=== PATIENT | female | born 1970 | race Caucasian/White ===

== ENCOUNTER → 2019-04-05 | Outpatient (CLI) | payer BC | LOC: RAD 09:39 | PROVIDERS: ATTEND Family Medicine | DX: R60.0 Localized edema (principal) | CPT/HCPCS: 93971 ==

== ENCOUNTER 2021-09-09 13:34 | Inpatient (IN) | payer BC ==
[~2021-09-09] VITALS: Ht 165.1 cm; Wt 117.5 kg
[2021-09-09] MEDS ORDERED: ONDANSETRON HCL INJ 2MG/ML 2ML 2 MG/ML VIAL IV STA (13:46)
[2021-09-09] MEDS ORDERED: KETOROLAC TROMETHAMINE 30 MG/ML VIAL IV STA (13:46)
[2021-09-09] MEDS ORDERED: SODIUM CHLORIDE 0.9% 1000ML 1,000 ML IV STA (13:46)
[2021-09-09 14:43] LABS: BASOPHILS % 0.3 % (0.0-1.0); EOSINOPHILS % 0.2 % (0.0-6.0); HEMATOCRIT 41.5 % (34.2-44.1); LYMPHOCYTES # (AUTO) 1.3 (1.0-3.2); LYMPHOCYTES % 9.7 % (18.0-39.1); MEAN CORPUSCULAR HEMOGLOBIN 27.9 pg (28-32); MEAN CORPUSCULAR HGB CONC 31.3 g/dL (31-35); MEAN CORPUSCULAR VOLUME 89.1 fL (81-99); MONOCYTES # (AUTO) 1.1 (0.2-0.8); MONOCYTES % 8.1 % (4.4-11.3); NEUTROPHILS # (AUTO) 10.6 (2.1-6.9); NEUTROPHILS % 81.2 % (38.7-80.0); PLATELET COUNT 412 x10e3/uL (140-360); RED BLOOD COUNT 4.66 x10e6/uL (3.6-5.1); RED CELL DISTRIBUTION WIDTH 14.6 % (11.7-14.4)
[2021-09-09 14:52] LABS: COLOR,URINE YELLOW (YELLOW)
[2021-09-09 14:53] LABS: CLARITY,URINE SL CLOUDY (CLEAR); KETONES,URINE NEGATIVE (NEGATIVE); LEUKOCYTE ESTERASE ,URINE TRACE (NEGATIVE); NITRITE,URINE NEGATIVE (NEGATIVE); PROTEIN,URINE DIPSTICK 1+ (NEGATIVE)
[2021-09-09 14:54] LABS: URINE UROBILINOGEN 0.2 mg/dL (0.2 - 1)
[2021-09-09 15:04] LABS: ALBUMIN 3.9 g/dL (3.5-5.0); ANION GAP 14.1 mmol/L (8-16); CALCIUM 10.2 mg/dL (8.4-10.2); CREATININE, SERUM 0.97 mg/dL (0.57-1.11); POTASSIUM 4.1 mmol/L (3.5-5.1)
[2021-09-09 15:07] LABS: BACTERIA,URINE RARE /HPF; EPITHELIAL CELLS,URINE FEW /LPF; RBC,URINE >50 /HPF (0-5); WBC,URINE (MAN) 0-5 /HPF (0-5)
[2021-09-09] MEDS ORDERED: ONDANSETRON HCL INJ 2MG/ML 2ML 2 MG/ML VIAL IV PRN (16:15)
[2021-09-09] MEDS: SODIUM CHLORIDE 0.9% 1000ML 1,000 ML IV SCH (17:29)
[2021-09-09 21:00] VITALS: BP 162/95
[2021-09-09] MEDS: Morphine 4mg INJECTION 4 MG/ML INJ IV PRN (21:49)
[2021-09-09] MEDS ORDERED: TRELEGY ELLIPT1 EACH INH (22:08)
[2021-09-09] MEDS ORDERED: ARMOUR THYROID60 MG PO (22:08)
[2021-09-09] MEDS ORDERED: PROAIR HFA INH8.5 GM INH (22:08)
[2021-09-09] MEDS ORDERED: LOSARTAN-HCTZ1 EACH PO (22:08)
[2021-09-10] VITALS (8 sets, daily range): BP systolic 111–167; BP diastolic 70–105
[2021-09-10] MEDS: SODIUM CHLORIDE 0.9% 1000ML 1,000 ML IV SCH ×4 (02:26→23:14)
[2021-09-10 05:41] LABS: BASOPHILS # (AUTO) 0.1 (0.0-0.1); BASOPHILS % 0.8 % (0.0-1.0); EOSINOPHILS # (AUTO) 0.4 (0.0-0.4); EOSINOPHILS % 3.2 % (0.0-6.0); HEMATOCRIT 38.7 % (34.2-44.1); HEMOGLOBIN 11.8 g/dL (12.0-16.0); LYMPHOCYTES # (AUTO) 2.6 (1.0-3.2); LYMPHOCYTES % 24.2 % (18.0-39.1); MEAN CORPUSCULAR HEMOGLOBIN 28.1 pg (28-32); MEAN CORPUSCULAR HGB CONC 30.5 g/dL (31-35); MEAN CORPUSCULAR VOLUME 92.1 fL (81-99); MONOCYTES # (AUTO) 1.1 (0.2-0.8); MONOCYTES % 9.8 % (4.4-11.3); NEUTROPHILS # (AUTO) 6.7 (2.1-6.9); NEUTROPHILS % 61.5 % (38.7-80.0); PLATELET COUNT 349 x10e3/uL (140-360)
[2021-09-10 06:19] LABS: ALBUMIN 3.2 g/dL (3.5-5.0); ALBUMIN/GLOBULIN RATIO 0.9 (0.8-2.0); CALCIUM 8.9 mg/dL (8.4-10.2); CREATININE, SERUM 0.94 mg/dL (0.57-1.11)
[2021-09-10] MEDS: KETOROLAC TROMETHAMINE 30 MG/ML VIAL IV PRN ×2 (09:04→23:14)
[2021-09-10] MEDS ORDERED: LACTULOSE SYRUP 20 GM/30 ML UDC PO PRN (18:45)
[2021-09-10] MEDS: Morphine 4mg INJECTION 4 MG/ML INJ IV PRN (19:48)
[2021-09-10] MEDS: TAMSULOSIN HCL 0.4 MG CAP PO SCH (20:36)
[2021-09-10] MEDS ORDERED: ALBUTEROL SULFATE HFA 8GM INHALATION AEROSOL INH PRN (23:00)
[2021-09-10] MEDS ORDERED: [UNRECOGNIZED DRUG - OTHER] INH PRN (23:00)
[2021-09-10] MEDS ORDERED: FLUTICASONE INH PRN (23:00)
[2021-09-10] MEDS ORDERED: VILANTER INH PRN (23:00)
[2021-09-11] VITALS (7 sets, daily range): BP systolic 135–157; BP diastolic 77–96
[2021-09-11] MEDS ORDERED: HYDROCHLOROTHIAZIDE 25 MG TAB PO SCH (09:00)
[2021-09-11] MEDS: THYROID 60 MG TAB PO SCH (09:00)
[2021-09-11] MEDS ORDERED: LOSARTAN POTASSIUM 25 MG TAB PO SCH (09:00)
[2021-09-11] MEDS: SODIUM CHLORIDE 0.9% 1000ML 1,000 ML IV SCH ×3 (09:07→21:17)
[2021-09-11] MEDS: KETOROLAC TROMETHAMINE 30 MG/ML VIAL IV PRN (09:14)
[2021-09-11] MEDS ORDERED: MIDAZOLAM HCL 2 MG/2 ML VIAL ONE (13:36)
[2021-09-11] MEDS ORDERED: FENTANYL CITRATE/PF 100MCG/2 ML INJ ONE (13:36)
[2021-09-11] MEDS ORDERED: B&O 60MG R/S 60 MG SUPP PR ONE (14:08)
[2021-09-11] MEDS ORDERED: IOPAMIDOL 610MG/1ML 300 MG/ML VIAL IV ONE (14:09)
[2021-09-11] MEDS ORDERED: B&O 60MG R/S 60 MG SUPP PR PRN (14:45)
[2021-09-11] MEDS ORDERED: PHENAZOPYRIDINE HCL 100 MG TAB PO PRN (14:45)
[2021-09-11] MEDS ORDERED: PROPOFOL IV EMULSION 10 MG/ML 20 ML VIAL ONE (15:07)
[2021-09-11] MEDS ORDERED: ONDANSETRON HCL INJ 2MG/ML 2ML 2 MG/ML VIAL ONE (15:07)
[2021-09-11] MEDS ORDERED: DEXAMETHASONE SOD PHOS INJ 4 MG/ML SDV ONE (15:07)
[2021-09-11] MEDS ORDERED: SEVOFLURANE INHAL SOLN 250 ML PEN BTL ONE (15:07)
[2021-09-11] MEDS ORDERED: POVIDONE IODINE 0.05% 0.05 % ML PO ONE (15:07)
[2021-09-11] MEDS ORDERED: LIDOCAINE HCL 2% LOCAL INJ 5 ML SDV VIAL INJ ONE (15:07)
[2021-09-11] MEDS: HYDROCHLOROTHIAZIDE 25 MG TAB PO SCH (21:00)
[2021-09-11] MEDS: LOSARTAN POTASSIUM 25 MG TAB PO SCH (21:00)
[2021-09-11] MEDS: TAMSULOSIN HCL 0.4 MG CAP PO SCH (21:17)
[2021-09-12] VITALS: BP 142/82
[2021-09-12 04:00] VITALS: BP 130/81
[2021-09-12] MEDS: SODIUM CHLORIDE 0.9% 1000ML 1,000 ML IV SCH (04:38)
[2021-09-12 05:38] LABS: BASOPHILS % 0.2 % (0.0-1.0); HEMATOCRIT 34.8 % (34.2-44.1); HEMOGLOBIN 11.1 g/dL (12.0-16.0); LYMPHOCYTES # (AUTO) 0.9 (1.0-3.2); LYMPHOCYTES % 8.6 % (18.0-39.1); MEAN CORPUSCULAR HEMOGLOBIN 27.5 pg (28-32); MEAN CORPUSCULAR HGB CONC 31.9 g/dL (31-35); MEAN CORPUSCULAR VOLUME 86.1 fL (81-99); MONOCYTES # (AUTO) 0.6 (0.2-0.8); MONOCYTES % 5.3 % (4.4-11.3); NEUTROPHILS # (AUTO) 8.9 (2.1-6.9); NEUTROPHILS % 85.4 % (38.7-80.0); PLATELET COUNT 311 x10e3/uL (140-360); RED BLOOD COUNT 4.04 x10e6/uL (3.6-5.1); RED CELL DISTRIBUTION WIDTH 14.3 % (11.7-14.4)
[2021-09-12 05:58] LABS: ANION GAP 13.2 mmol/L (8-16); CALCIUM 8.9 mg/dL (8.4-10.2); CREATININE, SERUM 0.79 mg/dL (0.57-1.11); POTASSIUM 4.2 mmol/L (3.5-5.1)
[2021-09-12 08:25] VITALS: BP 146/83
[2021-09-12 08:27] VITALS: BP 146/83
[2021-09-12] MEDS: LOSARTAN POTASSIUM 25 MG TAB PO SCH (09:02)
[2021-09-12] MEDS: HYDROCHLOROTHIAZIDE 25 MG TAB PO SCH (09:02)
[2021-09-12] MEDS: THYROID 60 MG TAB PO SCH (09:03)
[2021-09-12] MEDS ORDERED: ALBUTEROL0.63 MG/3 NEB (11:24)
[2021-09-12] MEDS ORDERED: ARMOUR THYROID60 MG PO (11:24)
[2021-09-12] MEDS ORDERED: LOSARTAN POTASS25 MG PO (11:24)
[2021-09-12] MEDS ORDERED: TRELEGY ELLIPT1 EACH (11:24)
[2021-09-12] MEDS ORDERED: ONDANSETRON HCL 4 MG ORAL DISINTEGRATING TAB PO PRN (12:30)
[2021-09-26] MEDS ORDERED: TORADOL PO (15:12)
== END 2021-09-12 12:20 | disposition home or self-care (01) | DRG 660 ==
LOC: ER 13:49 → ERHOLD 16:06 → MED/SURG 21:22
PROVIDERS: ADMIT Family Medicine; ATTEND Family Medicine
PROC: BT141ZZ Fluoroscopy of Kidneys, Ureters and Bladder using Low Osmolar Contrast (ICD-10-PCS; 2021-09-11)
PROC: 0TC68ZZ Extirpation of Matter from Right Ureter, Via Natural or Artificial Opening Endoscopic (ICD-10-PCS; 2021-09-11)
PROC: 0T778ZZ Dilation of Left Ureter, Via Natural or Artificial Opening Endoscopic (ICD-10-PCS; principal; 2021-09-11 14:05)
PROC: 0T768DZ Dilation of Right Ureter with Intraluminal Device, Via Natural or Artificial Opening Endoscopic (ICD-10-PCS; 2021-09-11 14:05)
DX: N13.6 Pyonephrosis (principal); Z68.41 Body mass index [BMI] 40.0-44.9, adult; I10 Essential (primary) hypertension; E03.9 Hypothyroidism, unspecified; Z79.899 Other long term (current) drug therapy; Z88.1 Allergy status to other antibiotic agents; Z20.822 Contact with and (suspected) exposure to COVID-19; R31.9 Hematuria, unspecified; N36.41 Hypermobility of urethra; N81.4 Uterovaginal prolapse, unspecified; N39.46 Mixed incontinence; E66.01 Morbid (severe) obesity due to excess calories; R31.29 Other microscopic hematuria; D64.9 Anemia, unspecified
CPT/HCPCS: 0223U; 36415; 74018; 74176; 74420; 80048; 80053; 81001; 81025; 83690; 83970; 84550; 85025; 87086; 88300; 99284; C1758; C1874; J0696; J1100; J1885; J2001; J2250; J2270; J2405; J3010; J7030

== ENCOUNTER 2021-09-18 13:56 | Emergency (ER) | payer BC ==
[~2021-09-18] VITALS: Ht 317.5 cm; Wt 117.5 kg
[~2021-09-18 13:56] MED LIST: ALBUTEROL0.63 MG/3 NEB; ARMOUR THYROID60 MG PO; LOSARTAN POTASS25 MG PO; LOSARTAN-HCTZ1 EACH PO; PROAIR HFA INH8.5 GM INH; TRELEGY ELLIPT1 EACH; TRELEGY ELLIPT1 EACH INH
[2021-09-18] MEDS ORDERED: KETOROLAC TROMETHAMINE 30 MG/ML VIAL IV STA (14:20)
[2021-09-18 14:48] LABS: BASOPHILS # (AUTO) 0.1 (0.0-0.1); BASOPHILS % 1.1 % (0.0-1.0); EOSINOPHILS # (AUTO) 1.3 (0.0-0.4); EOSINOPHILS % 11.8 % (0.0-6.0); HEMATOCRIT 42.8 % (34.2-44.1); HEMOGLOBIN 13.6 g/dL (12.0-16.0); LYMPHOCYTES # (AUTO) 1.6 (1.0-3.2); LYMPHOCYTES % 14.6 % (18.0-39.1); MEAN CORPUSCULAR HEMOGLOBIN 27.8 pg (28-32); MEAN CORPUSCULAR HGB CONC 31.8 g/dL (31-35); MEAN CORPUSCULAR VOLUME 87.5 fL (81-99); MONOCYTES % 9.2 % (4.4-11.3); NEUTROPHILS % 62.8 % (38.7-80.0); PLATELET COUNT 388 x10e3/uL (140-360); RED BLOOD COUNT 4.89 x10e6/uL (3.6-5.1); RED CELL DISTRIBUTION WIDTH 14.6 % (11.7-14.4)
[2021-09-18 15:12] LABS: ANION GAP 14.2 mmol/L (8-16); CREATININE, SERUM 0.95 mg/dL (0.57-1.11); POTASSIUM 4.2 mmol/L (3.5-5.1)
[2021-09-18 15:13] LABS: CALCIUM 10.9 mg/dL (8.4-10.2)
[2021-09-18 15:24] LABS: CLARITY,URINE CLEAR (CLEAR); COLOR,URINE ORANGE (YELLOW); KETONES,URINE NEGATIVE (NEGATIVE); LEUKOCYTE ESTERASE ,URINE 1+ (NEGATIVE); NITRITE,URINE POSITIVE (NEGATIVE); PROTEIN,URINE DIPSTICK 1+ (NEGATIVE); URINE UROBILINOGEN 0.2 mg/dL (0.2 - 1)
[2021-09-18 15:30] LABS: BACTERIA,URINE MANY /HPF; EPITHELIAL CELLS,URINE MODERATE /LPF; RBC,URINE >50 /HPF (0-5); TRANSITIONAL EPI CELLS,URINE FEW; WBC,URINE (MAN) >50 /HPF (0-5)
[2021-09-18 15:31] LABS: RENAL EPITHELIAL CELLS,URINE MODERATE
[2021-09-18] MEDS ORDERED: ACETAMINOPHEN 1000 MG/100 ML IV STA (15:52)
[2021-09-18] MEDS ORDERED: KETOROLAC TROME10 MG PO (16:07)
[2021-09-18 16:51] LABS: CLARITY,URINE SL CLOUDY (CLEAR); COLOR,URINE ORANGE (YELLOW); KETONES,URINE NEGATIVE (NEGATIVE); LEUKOCYTE ESTERASE ,URINE 1+ (NEGATIVE); NITRITE,URINE POSITIVE (NEGATIVE); PROTEIN,URINE DIPSTICK 2+ (NEGATIVE)
[2021-09-18 17:09] LABS: BACTERIA,URINE FEW /HPF; EPITHELIAL CELLS,URINE FEW /LPF; RBC,URINE >50 /HPF (0-5); WBC,URINE (MAN) 21-50 /HPF (0-5)
== END 2021-09-18 17:58 | disposition home or self-care (01) ==
LOC: ER 14:02
DX: M54.50 Low back pain, unspecified (principal); N13.2 Hydronephrosis with renal and ureteral calculous obstruction; R30.0 Dysuria; R31.9 Hematuria, unspecified; I10 Essential (primary) hypertension
CPT/HCPCS: 36415; 74176; 80048; 81001; 85025; 87086; 99283; J1885

== ENCOUNTER 2021-09-25 13:42 | Emergency (ER) | payer BC ==
[~2021-09-25] VITALS: Ht 317.5 cm; Wt 117.5 kg
[~2021-09-25 13:42] MED LIST changes: +KETOROLAC TROME10 MG PO
[2021-09-25] MEDS ORDERED: MEROPENEM 1 GM in SODIUM CHLORIDE 0.9% 100 ML IV STA (15:51)
[2021-09-25] MEDS ORDERED: HYDROCODON-ACE1 EA11 PO (16:37)
[2021-09-25] MEDS ORDERED: CIPRO500 MG PO (16:37)
[2021-09-25] MEDS ORDERED: HYDROCODONE/APAP 7.5MG-325MG 1 EA TAB PO ONE (16:45)
[2021-09-26] MEDS ORDERED: TORADOL PO (15:12)
== END 2021-09-25 17:58 | disposition home or self-care (01) ==
LOC: ER 14:11
DX: R10.2 Pelvic and perineal pain (principal); R31.9 Hematuria, unspecified; N39.0 Urinary tract infection, site not specified; I10 Essential (primary) hypertension; J45.909 Unspecified asthma, uncomplicated; Z20.822 Contact with and (suspected) exposure to COVID-19
CPT/HCPCS: 99283; J2185; J7050; U0002

== ENCOUNTER → 2021-09-27 | Day surgery (SDC) | payer BC ==
[~2021-09-27] MED LIST changes: +B&O 60MG R/S 60 MG SUPP PR ONE; +CIPRO500 MG PO; +DEXAMETHASONE SOD PHOS INJ 4 MG/ML SDV ONE; +FENTANYL CITRATE/PF 100MCG/2 ML INJ ONE; +GENTAMICIN 80MG/NS 100 ML 200 ML IV ONE; +HYDROCODON-ACE1 EA11 PO; +IOPAMIDOL 610MG/1ML 300 MG/ML VIAL IV ONE; +LIDOCAINE HCL 2% LOCAL INJ 5 ML SDV VIAL INJ ONE; +MIDAZOLAM HCL 2 MG/2 ML VIAL ONE; +ONDANSETRON HCL INJ 2MG/ML 2ML 2 MG/ML VIAL ONE; +PIPERACILLIN/TAZOBACTAM 3.375 GM VIAL ONE; +POVIDONE IODINE 0.05% 0.05 % ML PO ONE; +PROPOFOL IV EMULSION 10 MG/ML 20 ML VIAL ONE; +SEVOFLURANE INHAL SOLN 250 ML PEN BTL ONE; +TORADOL PO
[2021-09-27 13:53] VITALS: BP 155/91
== END | disposition home or self-care (01) ==
LOC: OR 08:49
PROVIDERS: ATTEND Urology
DX: N20.1 Calculus of ureter (principal); Z46.6 Encounter for fitting and adjustment of urinary device; N81.10 Cystocele, unspecified; N81.6 Rectocele; N28.89 Other specified disorders of kidney and ureter; J45.909 Unspecified asthma, uncomplicated; E03.9 Hypothyroidism, unspecified; Z88.1 Allergy status to other antibiotic agents; Z79.899 Other long term (current) drug therapy
CPT/HCPCS: 74420; 87086; 88300; 93005; C1769; J1100; J1580; J2001; J2250; J2405; J2543; J3010